=== PATIENT | female | born 1975 ===

== ENCOUNTER → 2019-04-16 | Outpatient (CLI) | payer OTHER ==
[2019-04-18 13:07] LABS: HPV 16 Negative (Negative); HPV 18 Negative (Negative); HPV OTHER HR TYPES Negative (Negative)
== END | disposition home or self-care (01) ==
LOC: LAB SHORT 14:30 → LAB 14:30
PROVIDERS: Family Medicine
DX: N88.0 Leukoplakia of cervix uteri (principal)
CPT/HCPCS: 87624; 88175

== ENCOUNTER 2020-06-06 09:16 | Emergency (ER) | payer OTHER ==
[~2020-06-06] VITALS: Ht 162.6 cm; Wt 113.4 kg
[2020-06-06 10:25] LABS: BASOPHILS ABSOLUTE AUTO 0.04 K/mm3 (0.00-0.23); BASOPHILS PERCENT AUTO 0 % (0-2); EOSINOPHILS ABSOLUTE AUTO 0.01 K/mm3 (0.00-0.68); EOSINOPHILS PERCENT AUTO 0 % (0-6); Hematocrit 38.5 % (33.0-51.0); Hemoglobin 11.9 g/dL (11.5-16.0); IMMATURE GRAN ABSOLUTE AUTO 0.05 K/mm3 (0.00-0.10); IMMATURE GRAN PERCENT AUTO 1 % (0-1); LYMPHOCYTES ABSOLUTE AUTO 1.16 K/mm3 (0.84-5.20); LYMPHOCYTES PERCENT AUTO 12 % (21-46); MONOCYTES ABSOLUTE AUTO 0.36 K/mm3 (0.16-1.47); MONOCYTES PERCENT AUTO 4 % (4-13); Mean Corpuscular HGB 24.3 pg (26.0-34.0); Mean Corpuscular HGB Conc 30.9 g/dL (31.5-36.5); Mean Corpuscular Volume 79 fL (80-100); NEUTROPHILS ABSOLUTE AUTO 8.36 K/mm3 (1.96-9.15); NEUTROPHILS PERCENT AUTO 84 % (41-73); RDW Coefficient Variation 15.5 % (11.7-14.2); RDW Standard Deviation 44.3 fL (35.1-46.3); Red Blood Cell Count 4.89 M/mm3 (3.80-5.20); White Blood Cell Count 9.98 K/mm3 (4.00-11.30)
[2020-06-06 10:29] LABS: Mean Platelet Volume 9.6 fL (9.1-12.4); Platelet Count 236 K/mm3 (150-400)
[2020-06-06 10:36] LABS: Alanine Aminotransfer (ALT/SGP 26 U/L (12-78); Albumin, Blood 3.6 g/dL (3.4-5.0); Alk Phos 114 U/L (50-136); Anion Gap 7 mmol/L (6-16); Aspartate Aminotrans (AST/SGOT 36 U/L (12-37); Bilirubin, Total 0.8 mg/dL (0.1-1.0); Blood Urea Nitrogen 10 mg/dL (8-24); Bun/Creatinine Ratio 20.3 (12.0-20.0); CO2, Blood 23 mmol/L (21-32); Calcium, Blood 8.5 mg/dL (8.5-10.1); Chloride, Blood 109 mmol/L (98-108); Creatinine, Blood 0.49 mg/dL (0.40-1.00); Globulin, Blood 3.6 g/dL (2.2-4.0); Glomerular Filtration Rate >60 (60-); Glucose, Blood 124 mg/dL (70-99); Potassium, Blood 5.5 mmol/L (3.5-5.5); Sodium, Blood 139 mmol/L (136-145); Total Protein, Blood 7.2 g/dL (6.4-8.2)
[2020-06-06 10:46] LABS: Source, Urine Clean Catch
[2020-06-06 10:49] LABS: Bilirubin, Urine Neg (Neg); Blood, Urine 3+ (Neg); Glucose Qualitative, Urine Neg (Neg); Ketones, Urine 1+ (Neg); Leukocyte Esterase, Urine 1+ (Neg); Nitrite, Urine Neg (Neg); Protein, Urine Neg (Neg); Urobilinogen, Urine NORM (Normal)
[2020-06-06 10:57] LABS: Appearance, Urine Hazy (Clear); Color, Urine Yellow (P-Yellow)
[2020-06-06 10:58] LABS: Squamous Epithelial Cells Mod /hpf (Few)
[2020-06-06 10:59] LABS: Bacteria Many /hpf
[2020-06-06] MEDS ORDERED: ONDA4ODT MM (13:04)
[2020-06-06] MEDS ORDERED: Percocet 7.5-31 EACH PO (13:04)
[2020-06-06] MEDS ORDERED: IBU800 MG PO (13:04)
== END 2020-06-06 14:14 | disposition home or self-care (01) ==
LOC: ER 09:16
PROVIDERS: Physician Assistant
DX: N83.202 Unspecified ovarian cyst, left side (principal)
CPT/HCPCS: 36415; 74176; 76830; 76856; 80053; 81001; 81025; 83690; 85025; 87086; 96374; 96375; 99284-25; J0696; J1170; J1885; J2270; J2405; J7030

== ENCOUNTER 2020-08-16 16:07 | Emergency (ER) | payer OTHER ==
[~2020-08-16] VITALS: Ht 162.6 cm; Wt 73.5 kg
[~2020-08-16 16:07] MED LIST: IBU800 MG PO; ONDA4ODT MM; Percocet 7.5-31 EACH PO
[2020-08-16 16:56] LABS: Source, Urine Clean Catch
[2020-08-16 17:04] LABS: BASOPHILS ABSOLUTE AUTO 0.06 K/mm3 (0.00-0.23); BASOPHILS PERCENT AUTO 1 % (0-2); EOSINOPHILS PERCENT AUTO 1 % (0-6); Hematocrit 34.5 % (33.0-51.0); IMMATURE GRAN ABSOLUTE AUTO 0.02 K/mm3 (0.00-0.10); IMMATURE GRAN PERCENT AUTO 0 % (0-1); LYMPHOCYTES ABSOLUTE AUTO 2.17 K/mm3 (0.84-5.20); LYMPHOCYTES PERCENT AUTO 25 % (21-46); MONOCYTES ABSOLUTE AUTO 0.53 K/mm3 (0.16-1.47); MONOCYTES PERCENT AUTO 6 % (4-13); Mean Corpuscular HGB 25.1 pg (26.0-34.0); Mean Corpuscular HGB Conc 31.9 g/dL (31.5-36.5); Mean Corpuscular Volume 79 fL (80-100); Mean Platelet Volume 9.1 fL (9.1-12.4); NEUTROPHILS ABSOLUTE AUTO 5.88 K/mm3 (1.96-9.15); NEUTROPHILS PERCENT AUTO 67 % (41-73); Platelet Count 326 K/mm3 (150-400); RDW Coefficient Variation 15.4 % (11.7-14.2); RDW Standard Deviation 43.6 fL (35.1-46.3); Red Blood Cell Count 4.38 M/mm3 (3.80-5.20); White Blood Cell Count 8.76 K/mm3 (4.00-11.30)
[2020-08-16 17:04] LABS: Appearance, Urine Hazy (Clear); Bilirubin, Urine Neg (Neg); Blood, Urine 5+ (Neg); Color, Urine Yellow (P-Yellow); Glucose Qualitative, Urine Neg (Neg); Ketones, Urine Neg (Neg); Leukocyte Esterase, Urine 1+ (Neg); Nitrite, Urine Neg (Neg); Protein, Urine 2+ (Neg); Urobilinogen, Urine NORM (Normal)
[2020-08-16 17:11] LABS: Red Blood Cells, Urine TNTC /hpf (0-2); Squamous Epithelial Cells Mod /hpf (Few)
[2020-08-16 17:12] LABS: Bacteria Mod /hpf; Mucus Light (0-Heavy)
[2020-08-16 17:24] LABS: Alanine Aminotransfer (ALT/SGP 23 U/L (12-78); Albumin, Blood 3.7 g/dL (3.4-5.0); Alk Phos 120 U/L (50-136); Anion Gap 8 mmol/L (6-16); Aspartate Aminotrans (AST/SGOT 13 U/L (12-37); Bilirubin, Total 0.6 mg/dL (0.1-1.0); Blood Urea Nitrogen 9 mg/dL (8-24); Bun/Creatinine Ratio 14.2 (12.0-20.0); CO2, Blood 22 mmol/L (21-32); Calcium, Blood 8.8 mg/dL (8.5-10.1); Chloride, Blood 109 mmol/L (98-108); Creatinine, Blood 0.63 mg/dL (0.40-1.00); Globulin, Blood 3.8 g/dL (2.2-4.0); Glomerular Filtration Rate >60 (60-); Glucose, Blood 92 mg/dL (70-99); Potassium, Blood 3.9 mmol/L (3.5-5.5); Sodium, Blood 139 mmol/L (136-145); Total Protein, Blood 7.5 g/dL (6.4-8.2)
== END 2020-08-16 19:55 | disposition home or self-care (01) ==
LOC: ER 16:07
PROVIDERS: Physician Assistant
DX: K42.9 Umbilical hernia without obstruction or gangrene (principal)
CPT/HCPCS: 36415; 71045; 74177; 80053; 81001; 83690; 84484; 84703; 85025; 86900; 86901; 87086; 87147; 93005; 93010; 96361; 96374; 96375; 99284-25; J1885; J2270; J2405; J7030; Q9967

== ENCOUNTER → 2025-03-12 | Outpatient (CLI) | payer OTHER ==
[2025-03-12 13:38] LABS: Candida Group, PCR NOT DETECTED (NOT DETECT); Candida glabrata-krusei, PCR NOT DETECTED (NOT DETECT)
[2025-03-12 13:52] LABS: Bacterial Vaginosis PCR Positive (NEGATIVE)
== END ==
LOC: LAB 09:50 → LAB SHORT 09:50
PROVIDERS: Nurse Practitioner Family
DX: N92.1 Excessive and frequent menstruation with irregular cycle (principal)
CPT/HCPCS: 81515; 87077; 87086; 87186

== ENCOUNTER → 2025-05-06 | Outpatient (CLI) | payer OTHER ==
[2025-05-06 19:27] LABS: Source, Urine Clean Catch
[2025-05-06 20:02] LABS: Red Blood Cells, Urine 0-2 /hpf (0-2); White Blood Cells, Urine 0-2 /hpf (0-5)
[2025-05-07 12:40] LABS: Bacterial Vaginosis PCR Negative (NEGATIVE); Candida glabrata-krusei, PCR NOT DETECTED (NOT DETECT)
[2025-05-07 12:45] LABS: Candida Group, PCR DETECTED (NOT DETECT)
== END ==
LOC: LAB 14:51 → LAB SHORT 14:51
PROVIDERS: Nurse Practitioner Family
DX: R35.0 Frequency of micturition (principal)
CPT/HCPCS: 81015; 81515; 87086